=== PATIENT | male | born 1960 | race Caucasian/White ===

== ENCOUNTER 2018-01-24 17:12 | Emergency (ER) | payer SELFPAY ==
[2018-01-24 17:17] VITALS: BP 134/84
[2018-01-24] MEDS ORDERED: TDAP ADULT 0.5 ML INJ (BOOSTRIX) IM ONE (18:11)
[2018-01-24] MEDS ORDERED: OXYCODONE/APAP 5/325 TAB PO ONE (18:13)
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
== END 2018-01-24 18:30 | disposition home or self-care (01) ==
DX: S42.021A Displaced fracture of shaft of right clavicle, initial encounter for closed fracture (principal); Z23 Encounter for immunization; V18.4XXA Pedal cycle driver injured in noncollision transport accident in traffic accident, initial encounter; Y92.410 Unspecified street and highway as the place of occurrence of the external cause; Y99.8 Other external cause status; Y93.55 Activity, bike riding